=== PATIENT | female | born 1940 | race Two or more races ===

== ENCOUNTER 2017-03-23 12:02 | Emergency (ER) | payer OTHER ==
[~2017-03-23] VITALS: Ht 167.6 cm; Wt 65.8 kg
[~2017-03-23 12:02] MED LIST: ASA81 MG; ATORVASTATIN CA40 MG; AVAPRO150 MG; ENALAPRIL MALEA10 MG; HYDROCHLOROTH12.5 M1; LEVAQUIN500 MG; METFORMIN HCL1000 M1; QUINAPRIL HCL20 MG; TOPROL XL50 MG
[2017-03-23] MEDS ORDERED: OSEL75CA PO (18:05)
[2017-03-24] MEDS ORDERED: SYMBICORT 80/10.2 GM IH (03:51)
[2017-03-24] MEDS ORDERED: MEDROLPACK PO (03:51)
[2017-03-24] MEDS ORDERED: MUCINEX DM ER1 EAC1 PO (03:51)
[2017-03-24] MEDS ORDERED: LEVAQUIN750 MG PO (03:51)
== END 2017-03-24 04:00 | disposition home or self-care (01) ==
LOC: ER 12:02
DX: J18.9 Pneumonia, unspecified organism (principal); B34.9 Viral infection, unspecified; J11.1 Influenza due to unidentified influenza virus with other respiratory manifestations

== ENCOUNTER 2018-09-25 18:29 | Emergency (ER) | payer OTHER ==
[~2018-09-25] VITALS: Ht 167.6 cm; Wt 81.6 kg
[~2018-09-25 18:29] MED LIST changes: +LEVAQUIN750 MG PO; +MEDROLPACK PO; +MUCINEX DM ER1 EAC1 PO; +OSEL75CA PO; +SYMBICORT 80/10.2 GM IH
[2018-09-25] MEDS ORDERED: CELEBREX100 MG PO (21:06)
== END 2018-09-25 21:12 | disposition home or self-care (01) ==
LOC: ER 18:29
DX: S40.012A Contusion of left shoulder, initial encounter (principal); W18.09XA Striking against other object with subsequent fall, initial encounter; Y93.89 Activity, other specified; Y92.22 Religious institution as the place of occurrence of the external cause; Y99.8 Other external cause status

== ENCOUNTER 2019-02-16 03:05 | Emergency (ER) | payer OTHER ==
[~2019-02-16] VITALS: Ht 170.2 cm; Wt 82.6 kg
[~2019-02-16 03:05] MED LIST changes: +CELEBREX100 MG PO
[2019-02-16] MEDS ORDERED: ORASEP SPRAY30 ML MM (04:04)
[2019-02-16] MEDS ORDERED: DUI500 PO (04:04)
== END 2019-02-16 04:12 | disposition home or self-care (01) ==
LOC: ER 03:05
DX: J02.9 Acute pharyngitis, unspecified (principal)

== ENCOUNTER 2020-07-21 11:29 | Emergency (ER) | payer OTHER ==
[~2020-07-21] VITALS: Ht 167.6 cm; Wt 82.6 kg
[~2020-07-21 11:29] MED LIST changes: +DUI500 PO; +ORASEP SPRAY30 ML MM
[2020-07-21] MEDS ORDERED: XARELTO20 MG (11:41)
== END 2020-07-21 16:26 | disposition home or self-care (01) ==
LOC: ER 11:29
DX: K29.70 Gastritis, unspecified, without bleeding (principal)

== ENCOUNTER 2021-12-07 12:35 | Emergency (ER) | payer OTHER ==
[~2021-12-07] VITALS: Ht 167.6 cm; Wt 78.0 kg
[~2021-12-07 12:35] MED LIST changes: +XARELTO20 MG
== END 2021-12-07 15:54 | disposition home or self-care (01) ==
LOC: ER 12:35
DX: R00.2 Palpitations (principal); E11.9 Type 2 diabetes mellitus without complications; Z79.84 Long term (current) use of oral hypoglycemic drugs

== ENCOUNTER 2022-09-04 18:04 | Inpatient (IN) | payer OTHER ==
[~2022-09-04] VITALS: Ht 167.6 cm; Wt 75.7 kg
[2022-09-04] MEDS ORDERED: SYNTHROID112 MCG PO (18:25)
[2022-09-04] MEDS ORDERED: PROTONIX40 MG PO (18:25)
[2022-09-04] MEDS ORDERED: ELIQUIS5 M1 PO (18:25)
[2022-09-04] MEDS ORDERED: KAPSPARGO SPRI100 MG PO (18:26)
[2022-09-04] MEDS ORDERED: COZAAR50 MG PO (18:26)
[2022-09-11] MEDS ORDERED: FAMOTIDINE20 MG PO (11:10)
[2022-09-11] MEDS ORDERED: PAIN RELIEVER500 M2 PO (11:10)
[2022-09-11] MEDS ORDERED: CEFDINIR300 MG PO (11:10)
[2022-09-11] MEDS ORDERED: IPRATROPIU0.2 MG/1 M IH (11:10)
[2022-09-11] MEDS ORDERED: LOSARTAN POTAS100 MG PO (11:10)
[2022-09-11] MEDS ORDERED: TOPROL XL100 M1 PO (11:10)
[2022-09-11] MEDS ORDERED: TUSSIN DM LIQU118 ML PO (11:10)
[2022-09-11] MEDS ORDERED: LEVOTHYROXINE112 MCG PO (11:10)
[2022-09-11] MEDS ORDERED: BENZONATATE200 M1 PO (11:10)
[2022-09-11] MEDS ORDERED: LIPITOR40 M1 PO (11:10)
[2022-09-11] MEDS ORDERED: FUROSEMIDE20 MG PO (11:10)
[2022-09-11] MEDS ORDERED: ELIQUIS5 MG PO (11:10)
[2022-09-11] MEDS ORDERED: AMLODIPINE BESYL5 MG PO (11:10)
[2022-09-11] MEDS ORDERED: FLUCONAZOLE100 MG PO (11:10)
== END 2022-09-11 13:42 | disposition home or self-care (01) | DRG 203 ==
LOC: ER 18:04 → MEDJ 22:30 → MEDI 09-05 15:11
PROVIDERS: ADMIT Internal Medicine; ATTEND Internal Medicine
PROC: BW24ZZZ Computerized Tomography (CT Scan) of Chest and Abdomen (ICD-10-PCS; principal; 2022-09-04)
DX: J40 Bronchitis, not specified as acute or chronic (principal); I48.91 Unspecified atrial fibrillation; E03.9 Hypothyroidism, unspecified; E11.9 Type 2 diabetes mellitus without complications; Z79.4 Long term (current) use of insulin; J44.9 Chronic obstructive pulmonary disease, unspecified; I10 Essential (primary) hypertension

== ENCOUNTER 2024-04-03 16:56 | Emergency (ER) | payer OTHER ==
[~2024-04-03] VITALS: Ht 167.6 cm; Wt 79.4 kg
[~2024-04-03 16:56] MED LIST changes: +AMLODIPINE BESYL5 MG PO; +BENZONATATE200 M1 PO; +CEFDINIR300 MG PO; +COZAAR50 MG PO; +ELIQUIS5 M1 PO; +ELIQUIS5 MG PO; +FAMOTIDINE20 MG PO; +FLUCONAZOLE100 MG PO; +FUROSEMIDE20 MG PO; +IPRATROPIU0.2 MG/1 M IH; +KAPSPARGO SPRI100 MG PO; +LEVOTHYROXINE112 MCG PO; +LIPITOR40 M1 PO; +LOSARTAN POTAS100 MG PO; +PAIN RELIEVER500 M2 PO; +PROTONIX40 MG PO; +SYNTHROID112 MCG PO; +TOPROL XL100 M1 PO; +TUSSIN DM LIQU118 ML PO
[2024-04-03] MEDS ORDERED: GLIPIZIDE5 MG PO (17:37)
[2024-04-03] MEDS ORDERED: METOCLOPRAMIDE HCL 5 MG/ML VIAL IM STA (18:20)
[2024-04-03] MEDS ORDERED: 0.9 % SODIUM CHLORIDE 500 ML IV STA (18:21)
[2024-04-03] MEDS ORDERED: FAMOtidine 10 MG/ML (4ML VIAL) IV PUSH STA (18:22)
[2024-04-03] MEDS ORDERED: METOCLOPRAMIDE HCL 5 MG/ML VIAL ONE (18:33)
[2024-04-03] MEDS ORDERED: FAMOTIDINE/PF 20 MG/2 ML VIAL ONE (18:34)
== END 2024-04-03 20:06 | disposition home or self-care (01) ==
LOC: ER 16:58
DX: K29.60 Other gastritis without bleeding (principal); R10.13 Epigastric pain
CPT/HCPCS: 96372; 96374; 96375; 99282; J2765; J3490; J7042

== ENCOUNTER 2025-01-04 12:58 | Emergency (ER) | payer OTHER ==
[~2025-01-04] VITALS: Ht 165.1 cm; Wt 84.4 kg
[~2025-01-04 12:58] MED LIST changes: +GLIPIZIDE5 MG PO
[2025-01-04] MEDS ORDERED: KETOROLAC TROMETHAMINE 30 MG VIAL IM ONE (15:15)
[2025-01-04] MEDS ORDERED: CYCLOBENZAPRINE HCL 5 MG TABLET PO ONE (15:15)
[2025-01-04] MEDS ORDERED: KETOROLAC TROMETHAMINE 30 MG VIAL ONE (19:47)
[2025-01-04] MEDS ORDERED: ORPHENADRINE CITRATE 30 MG/ML AMPUL ONE (19:56)
[2025-01-04] MEDS ORDERED: ORPHENADRINE CITRATE 30 MG/ML AMPUL IM ONE (20:00)
[2025-01-04] MEDS ORDERED: TYLENOL ARTHRI650 MG PO (20:05)
[2025-01-04] MEDS ORDERED: ZANAFLEX4 M1 PO (20:05)
[2025-01-04 20:11] VITALS: BP 148/88; O2SAT 98
== END 2025-01-04 20:13 | disposition home or self-care (01) ==
LOC: ER 12:58
DX: M62.838 Other muscle spasm (principal); I10 Essential (primary) hypertension; M54.50 Low back pain, unspecified